=== PATIENT | female | born 1985 | race Caucasian/White ===

== ENCOUNTER 2020-06-09 05:05 | Inpatient (IN) | payer OTHER, SELFPAY ==
[2014-09-04 09:22] VITALS: BMI 27.4
[2020-06-09] VITALS (40 sets, daily range): BP systolic 104–136; BP diastolic 59–77; PULSE 60–90; RESP 14–20; TEMP 36.4–36.7; O2SAT 100; BMI 27.3
--- NOTE | 2020-06-09 05:07 | PCM.HP.OB ---
- Problem List (1) Spontaneous onset of labor Status: Acute (2) 38 weeks gestation of Status: Acute History Date of Admission: 06/09/20 Final JAYA: 06/20/20 Gestational age: 38 Weeks and 3 Days History of this : This is a 35 year-old, G [3], P [2], at 38.3 weeks gestational age that presented to triage with contractions. Patient denies any loss of fluid or vaginal bleeding. Positive movement. Patient reports a history of fast labors. Allergies No Known Allergies Allergy (Verified 06/09/20 03:48) Home Medications: Home Medications Ferrous Gluconate 325 mg PO DAILY@0800 08/19/14 Vits [Prenatabs FA ] 1 tab PO DAILY 08/19/14 Smoking Status: Never smoker Number of Fetus(es): 1 NST - FHR Rate Baby A Baseline: 140 Variability:: Moderate Accelerations:: 15 x 15 FHR Category:: Category I Uterine Activity:: 3-5 minutes and palpates moderately and relaxed in between History Past Pregnancies: Past Pregnancies Delivery Date Name GA/ Weeks Outcome Route Wt Sex Labor Length Anesthesia Delivery Location Provider FOB Labs: O+ Rubella - immune HB- neg GBS- negative Hep C and HIV- not completed due to patient refusing RPR- NR GC/CH- neg COVID- 19 - unknown Expected Delivery Method: Spontaneous Vaginal Review of Systems Constitutional: Denies: Chills, Fever, Weight Change HEENT: Denies: Head Aches, Sinus Congestion, Sinus Drainage Cardiovascular: Denies: Chest Pain, Palpitations Respiratory: Denies: Cough, Shortness of breath at rest, Sputum production Gastrointestinal: Denies: Abdominal Pain, Nausea, Vomiting Genitourinary: Denies: Dysuria Physical Exam Vitals: Vital Signs Pulse BP 77 129/77 H 06/09/20 03:20 06/09/20 03:20 General: Alert, Oriented x3, Cooperative Cardiovascular: Regular rate Lungs: Normal air movement Abdomen: Soft, Non Tender, Gravid Neurological: Cranial nerves II-XII grossly intact Estimated gestational size: Appropriate for gestational size Presentation: Cephalic Cervix Dilation (cm): 5 Station: -2 Effacement (%): 80 Assessment/Plan All Active Problems Spontaneous onset of labor (Acute) 38 weeks gestation of (Acute) This is a 35 year-old, G [3], P [2], at 38.3 weeks gestational age in spontaneous labor. Admit to labor and delivery History of fast labor Routine labs IV fluids per protocol GBS negative Epidural when indicated Anticipate Dr. Lugo notified of admission and is collaborating physician
[2020-06-09] MEDS: Lactated Ringers 500 ML 999 ML IV (05:38)
[2020-06-09 05:48] LABS: Absolute Lymphocyte Count 1.59 X10^3/uL (0.83-4.51); Absolute Neutrophil Count 8.7 X10^3/uL (2.0-7.7); Basophil# 0.02 X10^3/uL; Basophil% 0.2 % (0-1); Eosinophil# 0.04 X10^3/uL; Eosinophils% 0.4 % (0-5); Hematocrit 33.3 % (37-47); Hemoglobin 10.7 g/dL (12.0-15.0); Lymphocyte # 1.59 X10^3/ul (4.0); Lymphocyte % 14.2 % (19-41); Mean Corp Hgb Conc 32.1 g/dL (32-36); Mean Corpuscular Hgb 27.5 pg (27.0-32.0); Mean Corpuscular Volume 85.6 fL (81-99); Mean Platelet Vol. 8.8 fl (6.2-12.0); Monocyte# 0.67 X10^3/uL; NRBC Flagged by Analyzer 0 % (0-5); Neutrophil % 77.7 % (47-70); Platelet Count 216 K/mm3 (150-450); RBC Distribution Width CV 14.7 % (11.6-14.6); RBC Distribution Width SD 45.7 fl (35.1-43.9); Red Blood Count 3.89 M/mm3 (4.2-5.4); White Blood Count 11.2 K/mm3 (4.4-11.0)
[2020-06-09] MEDS: Ondansetron 4 MG/2 ML Vial IV (05:48)
[2020-06-09] MEDS: Lactated Ringers 1,000 ML 200 ML IV (06:08)
[2020-06-09] MEDS: fentaNYL-bupivacaine (epidural) 100 ML BAG EPIDURAL (06:45)
[2020-06-09] MEDS: Oxytocin 30 units/NS 500 ml 30 UNITS/500 ML IV.SOLN 334 UNITS IV (07:24)
--- NOTE | 2020-06-09 07:31 | PCM.OPRPT ---
Problem List (1) Spontaneous onset of labor Status: Acute (2) 38 weeks gestation of Status: Acute Report of Operation Date of Procedure: 06/09/20 Pre-Operative Diagnosis: Term gestation, Spontaneous labor Post-Operative Diagnosis: Same, live female infant Vaginal Delivery Maternal Presentation: Active Labor Patient is a at 38.3 weeks gestation that presented to labor and delivery in active labor. Amniotic Membrane Rupture Type: Spontaneous Rupture of Membrane time: 703 Amniotic Fluid Description: Clear Final JAYA: 06/20/20 Gestational age: 38 Weeks and 3 Days Date of Procedure: 06/09/20 Pre-Operative Diagnosis: Term gestation, Spontaneous labor Post-Operative Diagnosis: same, live female infant Surgery/ Procedure Performed: Spontaneous Vaginal Delivery Type of Anesthesia: Epidural Description of Procedure: Patient felt a gush of fluid after sitting for placement of epidural. Spontaneous rupture of membranes for clear fluid. Patient immediately feeling urge to bear down. Minimal maternal effort delivered head which was quickly followed by both shoulders and remainder of . Vigorous female placed on maternal abdomen and was attended to by nursing staff. 3 vessel cord clamped and cut after 2 minute delay by FOB. Cord blood collected. Pitocin IV started for active management of third stage of labor. Placenta delivered spontaneously and intact. Bleeding was minimal. Fundus firm 1 below U. Vagina and perineum intact after inspection. EBL 200 cc APGARS 9/10 and mother bonding at this time. Dr. Lugo notified of delivery. Presentation: Vertex Placental Delivery Description: Spontaneous Placenta Disposition: [facility] Cord Vessel Description: 3 Vessels Cord Entanglement: None Estimated Blood Loss: 200 A gender: Female (1 minute): 9 (5 minute): 10 Episiotomy Description: None Laceration: None Medications given after delivery: IV Pitocin Complications: None
[2020-06-09] MEDS: 0.9% Saline Lock 10 ML Syringe IV (10:00)
[2020-06-09] MEDS: Senna/Docusate Sodium 1 Tablet PO (12:17)
[2020-06-09] MEDS: Acetaminophen 500 MG Tablet 1000 MG PO (18:50)
[2020-06-10] VITALS (8 sets, daily range): BP systolic 106–113; BP diastolic 63–68; PULSE 62–72; RESP 16–18; TEMP 36.3–36.5; O2SAT 96–100
[2020-06-10] MEDS: Senna/Docusate Sodium 1 Tablet PO (10:51)
--- NOTE | 2020-06-10 11:19 | PCM.PN.OB ---
Patient Problems: Active and Suspected Problems Spontaneous onset of labor (Acute) 38 weeks gestation of (Acute) Subjective: Doing well per patient and nursing staff. Ambulating and taking p.o. without difficulty voiding and passing flatus. Pain controlled. Breast-feeding without concerns. Planning DC home today - Physical Exam Vitals/I&O's: Vital Signs Temp Pulse Resp BP Pulse Ox 97.3 F L 65 18 110/68 100 06/10/20 08:43 06/10/20 08:45 06/10/20 08:43 06/10/20 08:45 06/10/20 08:45 Oxygen Delivery Method Room Air Weight: 185 lb 9.6 oz Body Mass Index (BMI) 27.3 Intake and Output for Last 24 Hours 06/08/20 06/09/20 06/10/20 23:59 23:59 23:59 Intake Total 1493.33 / 1493.33 Output Total 800 / 800 Balance 693.33 / 693.33 General: Alert, Oriented x3, Cooperative HEENT: Atraumatic, Normocephalic Neck: Trachea Midline Lungs: Clear to auscultation, Normal air movement, No rhonchi, No wheeze Cardiovascular: Regular rate, Regular Rhythm, No murmurs Abdomen: Bowel Sounds Present - Fundus firm 2 below U Extremities: Edema - +1 nonpitting bilateral Psych/Mental Status: Normal Affect, Appropriate Microbiology Past 72 Hours 06/09/20 05:35 Mucosa - Nasopharyngeal SARS-CoV-2 Antigen (Rapid) - Final Current Medications Acetaminophen (Acetaminophen 500 Mg Tablet) 1,000 mg PO Q8H PRN PRN PRN Reason: Pain Score 1-3 Last Admin: 06/09/20 18:50 Dose: 1,000 mg Documented by: Bisacodyl (Bisacodyl 10 Mg Suppository) 10 mg RECTAL UD PRN PRN Reason: If no BM Dibucaine (Dibucaine 30 Gm Tube) 1 applic TOPICAL TID PRN PRN; Protocol PRN Reason: Discomfort Hydrocortisone (Hydrocortisone 2.5% Crm) 1 applic TOPICAL TID PRN PRN; Protocol PRN Reason: Discomfort Ibuprofen (Ibuprofen 600 Mg Tablet) 600 mg PO Q6H PRN PRN PRN Reason: Pain Score 1-3 Methylergonovine Maleate (Methylergonovine 0.2 Mg/Ml Ampul) 0.2 mg IM X1 PRN PRN Reason: Excess bleeding/uterine atony Ondansetron HCl (Ondansetron 4 Mg/2 Ml Vial) 4 mg IV Q4H PRN PRN PRN Reason: Nausea Senna/Docusate Sodium (Senna/Docusate Sodium 1 Tablet) 1 - 2 tablet PO DAILY PRN PRN PRN Reason: Constipation Last Admin: 06/10/20 10:51 Dose: 2 tablet Documented by: Simethicone (Simethicone 80 Mg Tablet) 80 mg PO PCHS PRN PRN Reason: Indigestion/Stomach pain Sodium Chloride (0.9% Saline Lock 10 Ml Syringe) 5 - 15 ml IV UD PRN PRN Reason: SALINE FLUSH Last Admin: 06/09/20 10:00 Dose: 10 ml Documented by: Medical Necessity - Tobacco Use Smoking Status: Never smoker Assessment/Plan All Active Problems Spontaneous onset of labor (Acute) 38 weeks gestation of (Acute) A: day #1 Breast-feeding P: 1. Routine and breast-feeding instructions 2. Vitals stable and hemoglobin stable 3. Follow-up in 2 weeks for virtual visit in 6 weeks in office 4. Discharge home today
--- NOTE | 2020-06-10 11:25 | DCINST_ITS ---
Discharge Diet: No Restrictions Discharge Activity: Return to Normal Activity, May not drive while taking narcotic pain medications., May Shower, May Take a Tub Bath May resume sexual activity in: 4-6 weeks Weight Bearing Status: Full weight bearing Additional Activity Instructions:: Nothing in the vagina for 4-6 weeks. You may return to work/school in 6 weeks. Call your doctor if your incision/area has: Continuous Slow Oozing, Sudden Increased Bleeding, Increased Pain/ Swelling, Increased Redness, Foul Smelling Discharge Call your doctor if you observe: Fever of 101 or Higher, Inability to urinate, Using more than one pad per hour, Shortness of breath, Dizziness, Chest pain, Increased palpitations (irregular heartbeat), Calf discomfort, Uncontrolled pain Additional Instructions: If you experience any of the following, contact your healthcare provider. * Bleeding that soaks a pad every hour for 2 hours * Fever 100.4 or higher * Unrelieved incision or abdominal pain * Swelling, redness, discharge or bleeding from your incision or episiotomy site * Your incision begins to separate * Problems urinating (including inability to urinate or burning while urinating). * Visual changes * Severe headache * Flu-like symptoms * Pain or redness in one of both of your breasts * Pain, warmth, tenderness or swelling in your legs, especially the calf area * Frequent nausea and vomiting * Symptoms of depression or anxiety If you experience any of the following, call 911 or go to the nearest Emergency Room. * Chest pain * Problems breathing * Seizure activity * Partial or complete paralysis of a body part, slurred speech, weakness or drooping of the face, or a sudden inability to walk or hold your balance Allergies/Adverse Reactions: Allergies No Known Allergies Allergy (Verified 06/09/20 03:48) Medications to take at Discharge Ferrous Gluconate 325 mg PO DAILY@0800 08/19/14 Vits [Prenatabs FA ] 1 tab PO DAILY 08/19/14 Please Follow Up With: Claudine Kebede CNM When: Call to make an appointment with your doctor in 2 weeks and 6 weeks. If you had elevated Blood Pressure or 4th degree laceration you will need to be seen in 2 weeks. Test Results: Test results from this visit will be discussed in further detail at your follow- up appointment, if applicable.
== END 2020-06-10 13:05 | disposition home or self-care (01) | DRG 807 ==
LOC: WPOUT 05:10 → WP 05:10
PROVIDERS: Admitting Provider Advanced Practice Midwife; Referring Provider Advanced Practice Midwife; Visit Provider Advanced Practice Midwife
DX: O80 Encounter for full-term uncomplicated delivery (principal); Z37.0 Single live birth; Z3A.38 38 weeks gestation of pregnancy
CPT/HCPCS: 59025; 59050; 85025; 86850; 86900; 86901; 87426; 99218; J7120; A4216; G0378; J2405